=== PATIENT | female | born 1940 | race Caucasian/White ===

== ENCOUNTER 2023-03-16 00:03 | Emergency (ER) | payer MEDICARE, OTHER ==
[2023-03-16 00:43] LABS: INFLUENZA A NAA NEGATIVE (NEGATIVE); INFLUENZA B NAA NEGATIVE (NEGATIVE); RESPIRATORY SYNCYTIAL VIR NAA NEGATIVE (NEGATIVE)
[2023-03-16 00:44] VITALS: BP 153/82; PULSE 97
[2023-03-16 00:45] LABS: CORONAVIRUS COVID-19 NAA POSITIVE (NEGATIVE)
[2023-03-16 01:37] LABS: BASOPHILS PERCENT AUTO 0.4 % (0.0-1.0); EOSINOPHILS PERCENT AUTO 0.4 % (1.0-3.0); HEMATOCRIT 36.3 % (37.0-47.0); HEMOGLOBIN 11.2 g/dL (12.0-16.0); LYMPHOCYTES PERCENT AUTO 7.6 % (20.5-50.1); MEAN CORPUSCULAR HEMOGLOBIN 28.9 pg (27.0-34.0); MEAN CORPUSCULAR HGB CONC 30.9 g/dL (33.0-35.0); MEAN CORPUSCULAR VOLUME 93.6 fL (80-100); MONOCYTES PERCENT AUTO 19.8 % (2-8); NEUTROPHILS PERCENT AUTO 71.8 % (42.2-75.2); PLATELET COUNT,PLT 211 10^3/uL (150-450); RED BLOOD CELL COUNT 3.88 10^6/uL (4.2-5.4); WHITE BLOOD CELL COUNT,WBC 6.8 10^3/uL (5.0-10.0)
[2023-03-16] MEDS ORDERED: Dexamethasone 4 MG/ML SDV IVPUSH ONE (01:41)
[2023-03-16 02:02] LABS: ALBUMIN 2.9 g/dL (3.4-5.0); ANION GAP 5.5 mEq/L (7-13); BILIRUBIN TOTAL 0.4 mg/dL (0.2-1.0); BUN/CREATININE RATIO 14.1 (No establ ref range); CALCIUM 9.1 mg/dL (8.5-10.1); CREATININE 0.71 mg/dL (0.55-1.02); EST CRCL DRUG DOSING (CG) 50.53 mL/min; POTASSIUM,K 3.5 mmol/L (3.5-5.1); PROTEIN TOTAL,TP 6.5 g/dL (6.4-8.2)
[2023-03-16 02:08] LABS: A/G RATIO 0.81
== END 2023-03-16 03:18 | disposition home or self-care (01) ==
LOC: DL.ED 00:03
DX: U07.1 COVID-19 (principal); J44.9 Chronic obstructive pulmonary disease, unspecified; Z87.891 Personal history of nicotine dependence; I10 Essential (primary) hypertension; E03.9 Hypothyroidism, unspecified; Z79.899 Other long term (current) drug therapy
CPT/HCPCS: 0241U; 36415; 71045; 80053; 85025; 96374; 99284; 99285-25; J1100

== ENCOUNTER 2023-07-04 11:40 | Inpatient (IN) | payer MEDICARE, OTHER ==
[2023-07-04] MEDS: Albuterol/Ipratropium 3.0-0.5 MG/3 ML Neb Soln NEB ONE ×2 (11:48→13:04)
[2023-07-04] MEDS: methylPREDNISolone Sodium Succinate 125 MG/2 ML SDV IVPUSH ONE (11:50)
[2023-07-04 11:57] LABS: BASOPHILS PERCENT AUTO 0.2 % (0.0-1.0); EOSINOPHILS PERCENT AUTO 0.4 % (1.0-3.0); HEMATOCRIT 33.1 % (37.0-47.0); HEMOGLOBIN 10.1 g/dL (12.0-16.0); MEAN CORPUSCULAR HEMOGLOBIN 29.4 pg (27.0-34.0); MEAN CORPUSCULAR HGB CONC 30.5 g/dL (33.0-35.0); MEAN CORPUSCULAR VOLUME 96.2 fL (80-100); MONOCYTES PERCENT AUTO 6.4 % (2-8); PLATELET COUNT,PLT 248 10^3/uL (150-450); RED BLOOD CELL COUNT 3.44 10^6/uL (4.2-5.4); WHITE BLOOD CELL COUNT,WBC 22.5 10^3/uL (5.0-10.0)
[2023-07-04 12:20] LABS: A/G RATIO 1.2; ALBUMIN 4.2 g/dL (3.4-5.0); ANION GAP 8.1 mEq/L (7-13); BILIRUBIN TOTAL 0.6 mg/dL (0.2-1.0); BUN/CREATININE RATIO 14.3 (No establ ref range); CALCIUM 10.4 mg/dL (8.5-10.1); CREATININE 0.84 mg/dL (0.55-1.02); EST CRCL DRUG DOSING (CG) 42.71 mL/min; POTASSIUM,K 4.1 mmol/L (3.5-5.1); PROTEIN TOTAL,TP 7.7 g/dL (6.4-8.2)
[2023-07-04 12:21] LABS: LACTIC ACID 0.9 mmol/L (0.4-2.0)
[2023-07-04] MEDS: Levofloxacin/Dextrose 5%-Water 500 MG in Premix Bag 1 BAG IV ONE (12:28)
[2023-07-04] MEDS: Acetaminophen 500 MG Tab PO ONE (12:28)
[2023-07-04 12:34] LABS: INFLUENZA A NAA NEGATIVE (NEGATIVE); INFLUENZA B NAA NEGATIVE (NEGATIVE); RESPIRATORY SYNCYTIAL VIR NAA NEGATIVE (NEGATIVE)
[2023-07-04 12:37] LABS: CORONAVIRUS COVID-19 NAA POSITIVE (NEGATIVE)
[2023-07-04] MEDS: Sodium Chloride 0.9% 1,000 ML IV ONE (12:38)
[2023-07-04] MEDS: Benzonatate 100 MG Cap PO ONE (12:50)
[2023-07-04] MEDS: Sodium Chloride 0.9% 10 ML Syringe FLUSH PRN (12:52)
[2023-07-04] MEDS: Codeine/Promethazine 10-6.25 MG/5 ML Syrup 5 ML UD Cup PO ONE (12:54)
[2023-07-04] MEDS: Albuterol 0.083% 2.5 MG/3 ML Neb Soln NEB ONE (13:04)
[2023-07-04] MEDS ORDERED: Sennosides/Docusate Sodium 50-8.6 MG Tab PO PRN (14:47)
[2023-07-04] MEDS ORDERED: Naloxone 2 MG/2 ML Syringe IVPUSH PRN (14:47)
[2023-07-04] MEDS ORDERED: Magnesium Hydroxide 400 MG/5 ML Susp 30 ML Cup PO PRN (14:47)
[2023-07-04] MEDS ORDERED: HYDROmorphone 0.5 MG/0.5 ML Syringe IVPUSH PRN (14:47)
[2023-07-04] MEDS ORDERED: Polyethylene Glycol 3350 Powder 17 GM Packet PO PRN (14:47)
[2023-07-04] MEDS ORDERED: Acetaminophen 325 MG Tab PO PRN (14:47)
[2023-07-04] MEDS ORDERED: Ondansetron 4 MG/2 ML SDV IVPUSH PRN (14:47)
[2023-07-04] MEDS ORDERED: guaiFENesin/Dextromethorphan 100-10 MG/5 ML Soln 5 ML Cup PO PRN (14:51)
[2023-07-04] MEDS ORDERED: hydrALAZINE 20 MG/ML SDV IVPUSH PRN (15:17)
[2023-07-04] MEDS ORDERED: 50% Dextrose in Water 50 ML Syringe IVPUSH PRN (15:17)
[2023-07-04] MEDS ORDERED: Glucagon,Human Recombinant 1 MG Vial IM PRN (15:17)
[2023-07-04] MEDS: Sodium Chloride 0.9% 1,000 ML IV SCH (15:51)
[2023-07-04] MEDS: REMDESIVIR 200 MG in Sodium Chloride 0.9% 250 ML IV ONE (15:51)
[2023-07-04] MEDS: Magnesium Sulfate/D5W 1 GM/100 ML BAG IV ONE (17:18)
[2023-07-04] MEDS: Insulin Lispro 100 Units/ML 3 ML Vial SUBCUT SCH (17:22)
[2023-07-04] MEDS ORDERED: Acetaminophen 500 MG Tab PO PRN (17:31)
[2023-07-04] MEDS: Gabapentin 100 MG Cap PO SCH (18:30)
[2023-07-04] MEDS: Formoterol/Mometasone 200-5 MCG 8.8 GM Inhaler IH SCH (18:35)
[2023-07-04] MEDS ORDERED: Metoprolol Tartrate 25 MG Tab PO SCH (21:00)
[2023-07-04] MEDS ORDERED: guaiFENesin 600 MG Tab.ER PO SCH (21:00)
[2023-07-04] MEDS: Dexamethasone 4 MG Tab PO SCH (21:06)
[2023-07-04] MEDS: guaiFENesin 600 MG Tab.ER PO SCH (21:06)
[2023-07-04] MEDS: Metoprolol Succinate 50 MG Tab.ER PO SCH (21:06)
[2023-07-04] MEDS: Ziprasidone Mesylate 20 MG Vial IM PRN (21:07)
[2023-07-04] MEDS: diphenhydrAMINE 25 MG Tab PO SCH (21:07)
[2023-07-04] MEDS: FORMOTEROL FUMARATE INH SCH (21:07)
[2023-07-04] MEDS: BUDESONIDE INH SCH (21:07)
[2023-07-04] MEDS ORDERED: Albuterol 6.7 GM Inhaler**OWN MED INH PRN (21:11)
[2023-07-04] MEDS ORDERED: Albuterol 6.7 GM Inhaler INH PRN (21:56)
[2023-07-04] MEDS: Albuterol 6.7 GM Inhaler**OWN MED INH PRN (22:02)
[2023-07-04] MEDS: TIOTROPIUM BROMIDE INH SCH (22:03)
[2023-07-05] MEDS: Tiotropium Bromide 4 GM Inhalation Spray (2.5mcg/1 dose; 10 doses) INH SCH (01:48)
[2023-07-05] MEDS: Levothyroxine 75 MCG Tab PO SCH (05:14)
[2023-07-05] MEDS ORDERED: Patient's Own Medication 1 Each INH SCH (06:00)
[2023-07-05 06:27] LABS: BASOPHILS PERCENT AUTO 0.1 % (0.0-1.0); HEMOGLOBIN 9.5 g/dL (12.0-16.0); LYMPHOCYTES PERCENT AUTO 1.8 % (20.5-50.1); MEAN CORPUSCULAR HEMOGLOBIN 29.1 pg (27.0-34.0); MEAN CORPUSCULAR HGB CONC 30.6 g/dL (33.0-35.0); MEAN CORPUSCULAR VOLUME 95.1 fL (80-100); MONOCYTES PERCENT AUTO 2.4 % (2-8); NEUTROPHILS PERCENT AUTO 95.7 % (42.2-75.2); PLATELET COUNT,PLT 241 10^3/uL (150-450); RED BLOOD CELL COUNT 3.26 10^6/uL (4.2-5.4); WHITE BLOOD CELL COUNT,WBC 25.6 10^3/uL (5.0-10.0)
[2023-07-05 06:47] LABS: ALBUMIN 2.8 g/dL (3.4-5.0); ANION GAP 8.1 mEq/L (7-13); BILIRUBIN DIRECT 0.1 mg/dL (0.0-0.2); BILIRUBIN TOTAL 0.4 mg/dL (0.2-1.0); BUN/CREATININE RATIO 20.8 (No establ ref range); C-REACTIVE PROTEIN 9.72 ng/dL (<=0.50); CALCIUM 8.9 mg/dL (8.5-10.1); CREATININE 0.77 mg/dL (0.55-1.02); EST CRCL DRUG DOSING (CG) 46.6 mL/min; MAGNESIUM 1.9 mg/dL (1.8-2.4); POTASSIUM,K 4.1 mmol/L (3.5-5.1); PROTEIN TOTAL,TP 5.9 g/dL (6.4-8.2)
[2023-07-05 06:50] LABS: A/G RATIO 0.9
[2023-07-05] MEDS ORDERED: Tiotropium Bromide 4 GM Inhalation Spray (2.5mcg/1 dose; 10 doses) INH SCH ×2 (09:00)
[2023-07-05] MEDS ORDERED: SELENIUM 50 MCG PO SCH (09:00)
[2023-07-05] MEDS: Famotidine 20 MG Tab PO SCH (09:02)
[2023-07-05] MEDS: Docusate Sodium 100 MG Cap PO SCH (09:02)
[2023-07-05] MEDS: Cholecalciferol (Vitamin D3) 25 MCG Tab PO SCH (09:02)
[2023-07-05] MEDS: Multivitamin Tab PO SCH (09:02)
[2023-07-05] MEDS: Aspirin 81 MG Tab.EC PO SCH (09:03)
[2023-07-05] MEDS: REMDESIVIR 100 MG in Sodium Chloride 0.9% 100 ML IV SCH (09:04)
[2023-07-05] MEDS: Azithromycin 500 MG in Sodium Chloride 0.9% 250 ML IV SCH (09:04)
[2023-07-05] MEDS: cefTRIAXone 1 GM Vial IVPUSH SCH (09:04)
[2023-07-05] MEDS: Non-Formulary Medication 1 Each (Zinc Gluconate [Zinc] 50 MG Tablet) PO SCH (09:42)
[2023-07-05] MEDS: Diltiazem 60 MG Cap.SR PO SCH (13:50)
[2023-07-05] MEDS: Diltiazem 180 MG Cap.CD PO SCH ×2 (13:51→21:08)
[2023-07-06 06:16] LABS: BASOPHILS PERCENT AUTO 0.1 % (0.0-1.0); HEMOGLOBIN 10.3 g/dL (12.0-16.0); LYMPHOCYTES PERCENT AUTO 1.4 % (20.5-50.1); MEAN CORPUSCULAR HEMOGLOBIN 28.9 pg (27.0-34.0); MEAN CORPUSCULAR HGB CONC 30.3 g/dL (33.0-35.0); MEAN CORPUSCULAR VOLUME 95.5 fL (80-100); MONOCYTES PERCENT AUTO 2.2 % (2-8); NEUTROPHILS PERCENT AUTO 96.3 % (42.2-75.2); PLATELET COUNT,PLT 298 10^3/uL (150-450); RED BLOOD CELL COUNT 3.56 10^6/uL (4.2-5.4); WHITE BLOOD CELL COUNT,WBC 28.8 10^3/uL (5.0-10.0)
[2023-07-06 06:38] LABS: ANION GAP 6.8 mEq/L (7-13); BILIRUBIN DIRECT 0.1 mg/dL (0.0-0.2); BILIRUBIN TOTAL 0.3 mg/dL (0.2-1.0); BUN/CREATININE RATIO 27.8 (No establ ref range); C-REACTIVE PROTEIN 6.72 ng/dL (<=0.50); CALCIUM 9.5 mg/dL (8.5-10.1); CREATININE 0.79 mg/dL (0.55-1.02); EST CRCL DRUG DOSING (CG) 45.42 mL/min; MAGNESIUM 2.1 mg/dL (1.8-2.4); POTASSIUM,K 4.8 mmol/L (3.5-5.1); PROTEIN TOTAL,TP 6.1 g/dL (6.4-8.2)
[2023-07-06 06:51] LABS: A/G RATIO 0.97
[2023-07-06] MEDS: Diltiazem 180 MG Cap.CD PO SCH ×2 (11:00→12:20)
[2023-07-06] MEDS: Albuterol/Ipratropium 3.0-0.5 MG/3 ML Neb Soln NEB PRN (13:35)
[2023-07-06] MEDS: Morphine 2 MG/ML SYRINGE IVPUSH PRN (16:09)
[2023-07-06] MEDS: Albuterol/Ipratropium 3.0-0.5 MG/3 ML Neb Soln NEB SCH (16:49)
[2023-07-07 06:32] LABS: BASOPHILS PERCENT AUTO 0.1 % (0.0-1.0); HEMATOCRIT 34.6 % (37.0-47.0); HEMOGLOBIN 10.4 g/dL (12.0-16.0); LYMPHOCYTES PERCENT AUTO 1.5 % (20.5-50.1); MEAN CORPUSCULAR HEMOGLOBIN 29.1 pg (27.0-34.0); MEAN CORPUSCULAR HGB CONC 30.1 g/dL (33.0-35.0); MEAN CORPUSCULAR VOLUME 96.6 fL (80-100); MONOCYTES PERCENT AUTO 2.4 % (2-8); PLATELET COUNT,PLT 307 10^3/uL (150-450); RED BLOOD CELL COUNT 3.58 10^6/uL (4.2-5.4); WHITE BLOOD CELL COUNT,WBC 20.2 10^3/uL (5.0-10.0)
[2023-07-07 06:56] LABS: ALBUMIN 2.8 g/dL (3.4-5.0); ANION GAP 5.1 mEq/L (7-13); BILIRUBIN DIRECT 0.1 mg/dL (0.0-0.2); BILIRUBIN TOTAL 0.3 mg/dL (0.2-1.0); BUN/CREATININE RATIO 32.9 (No establ ref range); C-REACTIVE PROTEIN 3.77 ng/dL (<=0.50); CALCIUM 9.1 mg/dL (8.5-10.1); CREATININE 0.76 mg/dL (0.55-1.02); EST CRCL DRUG DOSING (CG) 47.21 mL/min; MAGNESIUM 2.1 mg/dL (1.8-2.4); POTASSIUM,K 5.1 mmol/L (3.5-5.1); PROTEIN TOTAL,TP 5.8 g/dL (6.4-8.2)
[2023-07-07 07:01] LABS: A/G RATIO 0.93
[2023-07-07] MEDS: Dexamethasone 4 MG Tab PO SCH (21:30)
[2023-07-07] MEDS: Metoprolol Tartrate 5 MG/5 ML SDV IVPUSH PRN (22:00)
[2023-07-07] MEDS: Ziprasidone Mesylate 20 MG Vial IM PRN (23:15)
[2023-07-08] MEDS: Oxymetazoline 0.05% Nasal Spray 30 ML Bottle NAS PRN (00:35)
[2023-07-08] MEDS: Pseudoephedrine 30 MG Tab PO ONE (00:45)
[2023-07-08 05:55] LABS: HEMATOCRIT 36.2 % (37.0-47.0); HEMOGLOBIN 10.8 g/dL (12.0-16.0); MEAN CORPUSCULAR HEMOGLOBIN 29.1 pg (27.0-34.0); MEAN CORPUSCULAR HGB CONC 29.8 g/dL (33.0-35.0); MEAN CORPUSCULAR VOLUME 97.6 fL (80-100); PLATELET COUNT,PLT 306 10^3/uL (150-450); RED BLOOD CELL COUNT 3.71 10^6/uL (4.2-5.4); WHITE BLOOD CELL COUNT,WBC 13.6 10^3/uL (5.0-10.0)
[2023-07-08 06:00] LABS: BASOPHILS PERCENT AUTO 0.1 % (0.0-1.0); LYMPHOCYTES PERCENT AUTO 1.8 % (20.5-50.1); MONOCYTES PERCENT AUTO 5.1 % (2-8)
[2023-07-08 06:08] LABS: ALBUMIN 2.8 g/dL (3.4-5.0); ANION GAP 3.5 mEq/L (7-13); BILIRUBIN DIRECT 0.1 mg/dL (0.0-0.2); BILIRUBIN TOTAL 0.3 mg/dL (0.2-1.0); BUN/CREATININE RATIO 32.9 (No establ ref range); C-REACTIVE PROTEIN 2.3 ng/dL (<=0.50); CALCIUM 9.2 mg/dL (8.5-10.1); CREATININE 0.7 mg/dL (0.55-1.02); EST CRCL DRUG DOSING (CG) 51.26 mL/min; MAGNESIUM 2.1 mg/dL (1.8-2.4); POTASSIUM,K 4.5 mmol/L (3.5-5.1); PROTEIN TOTAL,TP 5.6 g/dL (6.4-8.2)
[2023-07-08 06:31] LABS: BAND PERCENT MAN 1 %; LYMPHOCYTES PERCENT MAN 4 % (20-50); MONOCYTES PERCENT MAN 1 % (2-8); SEG NEUTROPHILS PERCENT MAN 93 % (42-75)
[2023-07-08 10:05] VITALS: BP 141/79; PULSE 100
== END 2023-07-08 12:20 | disposition home or self-care (01) | DRG 871 ==
LOC: DL.ED 11:40 → DL.MS 14:09 → DL.ED 14:13
PROVIDERS: ADMIT Internal Medicine; ATTEND Internal Medicine
PROC: 3E03329 Introduction of Other Anti-infective into Peripheral Vein, Percutaneous Approach (ICD-10-PCS; principal; 2023-07-04)
PROC: XW033E5 Introduction of Remdesivir Anti-infective into Peripheral Vein, Percutaneous Approach, New Technology Group 5 (ICD-10-PCS; 2023-07-04)
DX: A41.89 Other specified sepsis (principal); J12.82 Pneumonia due to coronavirus disease 2019; J96.21 Acute and chronic respiratory failure with hypoxia; A41.9 Sepsis, unspecified organism; J18.9 Pneumonia, unspecified organism; J96.22 Acute and chronic respiratory failure with hypercapnia; U07.1 COVID-19; E87.1 Hypo-osmolality and hyponatremia; J44.1 Chronic obstructive pulmonary disease with (acute) exacerbation; J44.0 Chronic obstructive pulmonary disease with (acute) lower respiratory infection; Z66 Do not resuscitate; R65.20 Severe sepsis without septic shock; E87.8 Other disorders of electrolyte and fluid balance, not elsewhere classified; M81.0 Age-related osteoporosis without current pathological fracture; D72.829 Elevated white blood cell count, unspecified; D50.9 Iron deficiency anemia, unspecified; I10 Essential (primary) hypertension; F41.9 Anxiety disorder, unspecified; E03.9 Hypothyroidism, unspecified; E78.5 Hyperlipidemia, unspecified; G47.00 Insomnia, unspecified; H54.7 Unspecified visual loss; E83.52 Hypercalcemia; R73.03 Prediabetes; Z98.51 Tubal ligation status; I25.2 Old myocardial infarction; Z79.890 Hormone replacement therapy; Z88.5 Allergy status to narcotic agent; Z79.82 Long term (current) use of aspirin; Z79.899 Other long term (current) drug therapy; Z87.891 Personal history of nicotine dependence; Z98.49 Cataract extraction status, unspecified eye; Z79.51 Long term (current) use of inhaled steroids; Z88.8 Allergy status to other drugs, medicaments and biological substances; Z99.81 Dependence on supplemental oxygen
CPT/HCPCS: 0241U; 36415; 70450; 71045; 80053; 82248; 82947; 83605; 83735; 83880; 84145; 84484; 85025; 86140; 87040; 87070; 87205; 93010; 94640; 94760; 96365; 96375; 99223; 99232; 99233; 99238; 99285; 99285-25; A9270-GY; J0248; J0456; J0696; J1815-GY; J1956; J2270; J2930; J3475; J3486; J3490; J7030; J7050; J7613-GY; J7620-GY; J8540

== ENCOUNTER 2024-11-08 06:42 | Inpatient (IN) | payer MEDICARE, OTHER ==
[2024-11-08] MEDS: Albuterol 0.083% 2.5 MG/3 ML Neb Soln ONE (07:06)
[2024-11-08] MEDS: methylPREDNISolone Sodium Succinate 125 MG/2 ML SDV IVPUSH ONE (07:09)
[2024-11-08 07:25] LABS: O2 DELIVERY DEVICE SIMPLE MASK
[2024-11-08 07:27] LABS: BASOPHILS PERCENT AUTO 0.2 % (0.0-1.0); EOSINOPHILS PERCENT AUTO 1.5 % (1.0-3.0); LYMPHOCYTES PERCENT AUTO 11.3 % (20.5-50.1); MONOCYTES PERCENT AUTO 12.0 % (2-8); NEUTROPHILS PERCENT AUTO 75.0 % (42.2-75.2); PLATELET COUNT,PLT 204 10^3/uL (150-450); RED BLOOD CELL COUNT 3.73 10^6/uL (4.2-5.4); WHITE BLOOD CELL COUNT,WBC 17.4 10^3/uL (5.0-10.0)
[2024-11-08 07:43] LABS: BASE EXCESS VENOUS 10.4 mmol/l ((-2)-(+3)); BICARBONATE,VENOUS 41 mmol/l (19-25); O2 SATURATION VENOUS 91.1 % (60-80); PO2 VENOUS 78 mmHg (35-42)
[2024-11-08 07:44] LABS: PCO2 VENOUS 98 mmHg (41-51); PH,VENOUS 7.24 (7.31-7.41)
[2024-11-08 07:52] LABS: B-TYPE NATRIURETIC PEPTIDE,BNP 275 pg/ml (0-100)
[2024-11-08 07:53] LABS: A/G RATIO 1.0; ALANINE AMINOTRANSFERASE,ALT 25 U/L (14-59); ASPARTATE AMNIOTRANSFERASE,AST 19 U/L (15-37); BILIRUBIN TOTAL 0.7 mg/dL (0.2-1.0); BLOOD UREA NITROGEN,BUN 17 mg/dL (7-18); CARBON DIOXIDE,CO2 41 mmol/L (21-32); CHLORIDE,CL 102 mmol/L (98-107); CREATININE 0.71 mg/dL (0.55-1.02); ESTIMATED GFR 84 mL/min (>=60); GLUCOSE RANDOM 120 mg/dL (70-99); POTASSIUM,K 4.1 mmol/L (3.5-5.1); PROTEIN TOTAL,TP 6.7 g/dL (6.4-8.2); SODIUM,NA 144 mmol/L (136-145)
[2024-11-08] MEDS: Iopamidol 612 MG/ML 100 ML Bottle IVPUSH ONE (08:19)
[2024-11-08] MEDS: Levofloxacin/Dextrose 5%-Water 750 MG in Premix Bag 1 BAG IV ONE (08:49)
[2024-11-08] MEDS: methylPREDNISolone Sodium Succinate 125 MG/2 ML SDV ONE (08:51)
[2024-11-08 09:02] LABS: O2 DELIVERY DEVICE BIPAP
[2024-11-08 09:09] LABS: BASE EXCESS VENOUS 12 mmol/l ((-2)-(+3)); BICARBONATE,VENOUS 40 mmol/l (19-25); O2 SATURATION VENOUS 33.3 % (60-80); PH,VENOUS 7.32 (7.31-7.41); PO2 VENOUS 35 mmHg (35-42)
[2024-11-08 09:11] LABS: PCO2 VENOUS 82 mmHg (41-51)
[2024-11-08 11:39] LABS: O2 DELIVERY DEVICE NASAL CANNULA
[2024-11-08 11:41] LABS: BASE EXCESS ARTERIAL 10 mmol/L ((-2)-(+3)); BICARBONATE,ARTERIAL 37.5 mmol/L (22-26); O2 SATURATION ARTERIAL 98 % (95-100); PH,ARTERIAL 7.32 (7.35-7.45); PO2 ARTERIAL 112 mmHg (70-100)
[2024-11-08 11:45] LABS: PCO2 ARTERIAL 75 mmHg (35-45)
[2024-11-08] MEDS: Magnesium Sulf/Wat 4 GM/50 mL 4 GM in Premix Bag 1 BAG IV ONE (12:54)
[2024-11-08] MEDS: Heparin Sodium 5,000 Units/ML Vial SUBCUT SCH (12:55)
[2024-11-08] MEDS: LORazepam 2 MG/ML SDV IVPUSH SCH (12:56)
[2024-11-08] MEDS: methylPREDNISolone Sodium Succinate 40 MG/1 ML SDV IVPUSH SCH (18:14)
[2024-11-09 06:03] LABS: BASOPHILS PERCENT AUTO 0.1 % (0.0-1.0); EOSINOPHILS PERCENT AUTO 0.0 % (1.0-3.0); LYMPHOCYTES PERCENT AUTO 3.7 % (20.5-50.1); MONOCYTES PERCENT AUTO 4.3 % (2-8); NEUTROPHILS PERCENT AUTO 91.9 % (42.2-75.2); PLATELET COUNT,PLT 208 10^3/uL (150-450); RED BLOOD CELL COUNT 3.40 10^6/uL (4.2-5.4); WHITE BLOOD CELL COUNT,WBC 14.7 10^3/uL (5.0-10.0)
[2024-11-09 06:22] LABS: BLOOD UREA NITROGEN,BUN 18.0 mg/dL (7-18); CARBON DIOXIDE,CO2 39.0 mmol/L (21-32); CHLORIDE,CL 104.0 mmol/L (98-107); CREATININE 0.64 mg/dL (0.55-1.02); EST CRCL DRUG DOSING (CG) 52.68 mL/min; GLUCOSE RANDOM 124.0 mg/dL (70-99); PHOSPHORUS 2.9 mg/dL (2.6-4.7); POTASSIUM,K 4.5 mmol/L (3.5-5.1); SODIUM,NA 142.0 mmol/L (136-145)
[2024-11-09 06:34] LABS: ESTIMATED GFR 88.0 mL/min (>=60)
[2024-11-09 06:44] LABS: O2 DELIVERY DEVICE NASAL CANNULA; PH,ARTERIAL 7.38 (7.35-7.45)
[2024-11-09 06:45] LABS: BASE EXCESS ARTERIAL 11 mmol/L ((-2)-(+3)); BICARBONATE,ARTERIAL 38.1 mmol/L (22-26); O2 SATURATION ARTERIAL 91 % (95-100); PO2 ARTERIAL 65 mmHg (70-100)
[2024-11-09 06:47] LABS: PCO2 ARTERIAL 67 mmHg (35-45)
[2024-11-09] MEDS: Diltiazem 240 MG Cap.ER PO SCH (08:49)
[2024-11-09] MEDS: LORazepam 2 MG/ML SDV IVPUSH PRN (09:59)
[2024-11-09] MEDS: Diltiazem 120 MG Cap.CD PO SCH (10:08)
[2024-11-09 10:18] LABS: IRON,FE 44.0 ug/dL (50-170); PERCENT FE SATURATION 23.7 % (20.0-50.0)
[2024-11-09] MEDS: Saccharomyces Boulardii (Probiotic) 250 MG Cap PO SCH (10:36)
[2024-11-09 11:20] LABS: T4 FREE 1.05 ng/dL (0.76-1.46); TSH ULTRASENSITIVE 0.89 uIU/mL (0.36-3.74)
[2024-11-09 11:21] LABS: FOLIC ACID > 20.0 ng/mL (8.6-58.9)
[2024-11-09] MEDS: Dexamethasone/Tobramycin 0.1-0.3% Ophth Oint 3.5 GM Tube EYEBOTH SCH (21:55)
[2024-11-10 06:15] LABS: BASOPHILS PERCENT AUTO 0.1 % (0.0-1.0); EOSINOPHILS PERCENT AUTO 0.0 % (1.0-3.0); LYMPHOCYTES PERCENT AUTO 3.3 % (20.5-50.1); MONOCYTES PERCENT AUTO 4.9 % (2-8); NEUTROPHILS PERCENT AUTO 91.7 % (42.2-75.2); PLATELET COUNT,PLT 246 10^3/uL (150-450); RED BLOOD CELL COUNT 3.39 10^6/uL (4.2-5.4); WHITE BLOOD CELL COUNT,WBC 15.4 10^3/uL (5.0-10.0)
[2024-11-10 06:28] LABS: BLOOD UREA NITROGEN,BUN 22.0 mg/dL (7-18); CARBON DIOXIDE,CO2 41.0 mmol/L (21-32); CHLORIDE,CL 102.0 mmol/L (98-107); CREATININE 0.69 mg/dL (0.55-1.02); EST CRCL DRUG DOSING (CG) 48.86 mL/min; GLUCOSE RANDOM 131.0 mg/dL (70-99); POTASSIUM,K 4.5 mmol/L (3.5-5.1); SODIUM,NA 139.0 mmol/L (136-145)
[2024-11-10 07:04] LABS: ESTIMATED GFR 86.0 mL/min (>=60)
[2024-11-10] MEDS ORDERED: Saccharomyces Boulardii (Probiotic) 250 MG Cap PO SCH ×2 (09:00)
[2024-11-11] MEDS: Theophylline 200 MG Cap.ER PO SCH (13:47)
[2024-11-11] MEDS ORDERED: Sodium Chloride 0.9% 10 ML Syringe FLUSH PRN (22:08)
[2024-11-12 06:16] LABS: PLATELET COUNT,PLT 263 10^3/uL (150-450); RED BLOOD CELL COUNT 3.72 10^6/uL (4.2-5.4); WHITE BLOOD CELL COUNT,WBC 12.4 10^3/uL (5.0-10.0)
[2024-11-12 06:19] LABS: BASOPHILS PERCENT AUTO 0.2 % (0.0-1.0); EOSINOPHILS PERCENT AUTO 0.0 % (1.0-3.0); LYMPHOCYTES PERCENT AUTO 4.0 % (20.5-50.1); MONOCYTES PERCENT AUTO 7.4 % (2-8); NEUTROPHILS PERCENT AUTO 88.4 % (42.2-75.2)
[2024-11-12 06:29] LABS: BLOOD UREA NITROGEN,BUN 21.0 mg/dL (7-18); CARBON DIOXIDE,CO2 39.0 mmol/L (21-32); CHLORIDE,CL 104.0 mmol/L (98-107); CREATININE 0.71 mg/dL (0.55-1.02); EST CRCL DRUG DOSING (CG) 47.48 mL/min; GLUCOSE RANDOM 148.0 mg/dL (70-99); POTASSIUM,K 4.2 mmol/L (3.5-5.1); SODIUM,NA 143.0 mmol/L (136-145)
[2024-11-12 06:30] LABS: ESTIMATED GFR 84.0 mL/min (>=60)
[2024-11-12 06:40] LABS: BAND PERCENT MAN 2 %; LYMPHOCYTES PERCENT MAN 4 % (20-50); MONOCYTES PERCENT MAN 8 % (2-8); SEG NEUTROPHILS PERCENT MAN 86 % (42-75)
[2024-11-12] MEDS ORDERED: Ondansetron 4 MG/2 ML SDV IVPUSH PRN (16:19)
[2024-11-12] MEDS: Tiotropium Bromide 4 GM Inhalation Spray (2.5mcg/1 dose; 10 doses) INH SCH (16:39)
[2024-11-12] MEDS: Lactulose Soln 10 GM/15 ML 30 ML UD Cup PO ONE (17:17)
[2024-11-12] MEDS: ENSIFENTRINE NEB SCH (17:21)
[2024-11-12] MEDS: Formoterol/Mometasone 200-5 MCG 8.8 GM Inhaler INH SCH (17:22)
[2024-11-13] MEDS: Benzocaine/Cetylpyridinium/Menthol Lozenge MUCMEM ONE (08:42)
[2024-11-13 16:25] LABS: PLATELET COUNT,PLT 303 10^3/uL (150-450); RED BLOOD CELL COUNT 3.67 10^6/uL (4.2-5.4); WHITE BLOOD CELL COUNT,WBC 14.1 10^3/uL (5.0-10.0)
[2024-11-13 16:30] LABS: BASOPHILS PERCENT AUTO 0.1 % (0.0-1.0); EOSINOPHILS PERCENT AUTO 0.1 % (1.0-3.0); LYMPHOCYTES PERCENT AUTO 3.2 % (20.5-50.1); MONOCYTES PERCENT AUTO 4.2 % (2-8); NEUTROPHILS PERCENT AUTO 92.4 % (42.2-75.2)
[2024-11-13 16:46] LABS: ALANINE AMINOTRANSFERASE,ALT 47.0 U/L (14-59); ASPARTATE AMNIOTRANSFERASE,AST 30.0 U/L (15-37); BILIRUBIN TOTAL 0.7 mg/dL (0.2-1.0); BLOOD UREA NITROGEN,BUN 29.0 mg/dL (7-18); CARBON DIOXIDE,CO2 41.0 mmol/L (21-32); CHLORIDE,CL 103.0 mmol/L (98-107); CREATININE 0.92 mg/dL (0.55-1.02); EST CRCL DRUG DOSING (CG) 36.64 mL/min; GLUCOSE RANDOM 168.0 mg/dL (70-99); POTASSIUM,K 4.4 mmol/L (3.5-5.1); PROTEIN TOTAL,TP 6.0 g/dL (6.4-8.2); SODIUM,NA 143.0 mmol/L (136-145)
[2024-11-13 16:47] LABS: A/G RATIO 1.07; ESTIMATED GFR 62.0 mL/min (>=60)
[2024-11-13 16:52] LABS: SEG NEUTROPHILS PERCENT MAN 92 % (42-75)
[2024-11-13 16:53] LABS: BAND PERCENT MAN 3 %; LYMPHOCYTES PERCENT MAN 2 % (20-50); MONOCYTES PERCENT MAN 3 % (2-8)
[2024-11-13 17:07] VITALS: BP 112/67; PULSE 81
[2024-11-13] MEDS ORDERED: ENSIFENTRINE NEB SCH (20:00)
[2024-11-14] MEDS ORDERED: Tiotropium Bromide 4 GM Inhalation Spray (2.5mcg/1 dose; 10 doses) INH SCH (07:00)
[2024-11-14] MEDS ORDERED: Theophylline 200 MG Tab.ER PO SCH (09:00)
== END 2024-11-13 17:30 | DRG 189 ==
LOC: DL.ED 06:42 → DL.MS 10:31
PROVIDERS: ADMIT Internal Medicine; ATTEND Student in an Organized Health Care Education/Training Program
PROC: 3E03329 Introduction of Other Anti-infective into Peripheral Vein, Percutaneous Approach (ICD-10-PCS; principal; 2024-11-08)
PROC: 4A033R1 Measurement of Arterial Saturation, Peripheral, Percutaneous Approach (ICD-10-PCS; 2024-11-08)
PROC: 5A09357 Assistance with Respiratory Ventilation, Less than 24 Consecutive Hours, Continuous Positive Airway Pressure (ICD-10-PCS; 2024-11-08)
DX: J96.21 Acute and chronic respiratory failure with hypoxia (principal); J44.1 Chronic obstructive pulmonary disease with (acute) exacerbation; J96.22 Acute and chronic respiratory failure with hypercapnia; I25.10 Atherosclerotic heart disease of native coronary artery without angina pectoris; D72.825 Bandemia; Z66 Do not resuscitate; Z79.890 Hormone replacement therapy; I10 Essential (primary) hypertension; E03.9 Hypothyroidism, unspecified; F41.9 Anxiety disorder, unspecified; J43.9 Emphysema, unspecified; D50.9 Iron deficiency anemia, unspecified; Z98.49 Cataract extraction status, unspecified eye; I25.2 Old myocardial infarction; Z79.52 Long term (current) use of systemic steroids; Z98.51 Tubal ligation status; Z79.899 Other long term (current) drug therapy; Z79.82 Long term (current) use of aspirin; Z88.8 Allergy status to other drugs, medicaments and biological substances; Z88.5 Allergy status to narcotic agent; Z99.81 Dependence on supplemental oxygen; Z87.891 Personal history of nicotine dependence
CPT/HCPCS: 36415; 71045; 71260; 80053; 82803 ×2; 83735; 83880; 84484; 85025; 86140; 87040 ×2; 93005; 93010; 94660 ×2; 96365; 96366; 96375; 99285 ×2; A9270; J1956; J2919; J7040; Q9967; 36600; 80048; 82272; 82607; 82746; 83540; 83550; 84100; 84439; 84443; 94640; 94664; 99233; 99238; J0456; J1644; J1920; J2060; J2270; J3475; J7050; J7512; U0002

== ENCOUNTER 2024-12-24 17:17 | Emergency (ER) | payer MEDICARE, OTHER ==
[2024-12-24] MEDS ORDERED: Sodium Chloride 0.9% 10 ML Syringe FLUSH PRN (17:23)
[2024-12-24] MEDS: methylPREDNISolone Sodium Succinate 40 MG/1 ML SDV IVPUSH ONE (17:35)
[2024-12-24 17:41] LABS: BASOPHILS PERCENT AUTO 0.4 % (0.0-1.0); EOSINOPHILS PERCENT AUTO 0.6 % (1.0-3.0); LYMPHOCYTES PERCENT AUTO 14.9 % (20.5-50.1); MONOCYTES PERCENT AUTO 11.6 % (2-8); NEUTROPHILS PERCENT AUTO 72.5 % (42.2-75.2); PLATELET COUNT,PLT 320 10^3/uL (150-450); RED BLOOD CELL COUNT 4.04 10^6/uL (4.2-5.4); WHITE BLOOD CELL COUNT,WBC 13.3 10^3/uL (5.0-10.0)
[2024-12-24 17:57] LABS: A/G RATIO 1.2; ALANINE AMINOTRANSFERASE,ALT 31 U/L (14-59); ASPARTATE AMNIOTRANSFERASE,AST 15 U/L (15-37); BILIRUBIN TOTAL 0.4 mg/dL (0.2-1.0); BLOOD UREA NITROGEN,BUN 27 mg/dL (7-18); CARBON DIOXIDE,CO2 40 mmol/L (21-32); CHLORIDE,CL 102 mmol/L (98-107); CREATININE 0.64 mg/dL (0.55-1.02); GLUCOSE RANDOM 122 mg/dL (70-99); POTASSIUM,K 4.1 mmol/L (3.5-5.1); PROTEIN TOTAL,TP 7.1 g/dL (6.4-8.2); SODIUM,NA 146 mmol/L (136-145)
[2024-12-24 18:00] LABS: B-TYPE NATRIURETIC PEPTIDE,BNP 112 pg/ml (0-100)
[2024-12-24 18:01] LABS: ESTIMATED GFR 88 mL/min (>=60); LACTIC ACID 1.4 mmol/L (0.4-2.0)
[2024-12-24] MEDS: Ondansetron 4 MG/2 ML SDV IVPUSH ONE (18:20)
[2024-12-24] MEDS: Magnesium Sulfate 2 GM/50 mL 2 GM in Premix Bag 1 BAG IV ONE (18:20)
[2024-12-24] MEDS: Levofloxacin/Dextrose 5%-Water 500 MG in Premix Bag 1 BAG IV ONE (18:21)
[2024-12-24] MEDS: Ondansetron 4 MG/2 ML SDV ONE (18:21)
[2024-12-24] MEDS: Albuterol 0.083% 2.5 MG/3 ML Neb Soln NEB ONE (18:28)
[2024-12-24 20:05] VITALS: BP 128/79; PULSE 113
== END 2024-12-24 21:10 | disposition critical access hospital (66) ==
LOC: DL.ED 17:17
DX: J44.1 Chronic obstructive pulmonary disease with (acute) exacerbation (principal); I10 Essential (primary) hypertension; E03.9 Hypothyroidism, unspecified; Z88.5 Allergy status to narcotic agent; Z88.8 Allergy status to other drugs, medicaments and biological substances; Z79.890 Hormone replacement therapy; Z79.899 Other long term (current) drug therapy; Z79.82 Long term (current) use of aspirin
CPT/HCPCS: 36415; 71045; 80053; 83605; 83880; 85025; 87040; 93005; 94660; 96374; 96375; 99285; A9270; J1956; J2405; J2919; J3475

== ENCOUNTER 2025-02-10 17:33 | Inpatient (IN) | payer MEDICARE, OTHER ==
[2025-02-10] MEDS ORDERED: Magnesium Hydroxide 400 MG/5 ML Susp 30 ML Cup PO PRN (18:10)
[2025-02-10] MEDS ORDERED: AMINOPHYLLINE IV ONE (18:27)
[2025-02-10] MEDS ORDERED: SODIUM CHLORIDE 0.9% IV ONE (18:27)
[2025-02-10] MEDS: methylPREDNISolone Sodium Succinate 40 MG/1 ML SDV IVPUSH SCH (18:55)
[2025-02-10] MEDS: AMINOPHYLLINE IV ONE (20:16)
[2025-02-10] MEDS: SODIUM CHLORIDE 0.9% IV ONE (20:16)
[2025-02-10 21:34] VITALS: BP 132/58; PULSE 98
[2025-02-11] MEDS: Furosemide 20 MG/2 ML VIAL IVPUSH ONE (17:59)
[2025-02-11] MEDS: Magnesium Sulfate 2 GM/50 mL 2 GM in Premix Bag 1 BAG IV ONE (18:04)
[2025-02-11] MEDS: Ondansetron 4 MG/2 ML SDV IVPUSH ONE (18:44)
[2025-02-12] MEDS ORDERED: Theophylline 200 MG Tab.ER PO SCH (09:00)
[2025-02-12] MEDS: Theophylline 300 MG Tab.ER PO SCH (09:23)
[2025-02-12] MEDS: Morphine 100 MG in Sodium Chloride 0.9% 90 ML IV SCH (12:46)
== END 2025-02-12 18:15 | disposition expired | DRG 951 ==
LOC: UNDOADMIN 18:25 → DL.MS 18:25
PROVIDERS: ADMIT Internal Medicine; ATTEND Internal Medicine
DX: Z51.5 Encounter for palliative care (principal); J96.21 Acute and chronic respiratory failure with hypoxia; Z66 Do not resuscitate; J44.9 Chronic obstructive pulmonary disease, unspecified; E03.9 Hypothyroidism, unspecified; G89.29 Other chronic pain; I10 Essential (primary) hypertension; E78.5 Hyperlipidemia, unspecified; F32.A Depression, unspecified; F41.9 Anxiety disorder, unspecified; Z88.8 Allergy status to other drugs, medicaments and biological substances; Z79.899 Other long term (current) drug therapy; Z79.82 Long term (current) use of aspirin; Z79.52 Long term (current) use of systemic steroids; Z98.49 Cataract extraction status, unspecified eye
CPT/HCPCS: 99223; 99233; 99239; A9270-GY; J0280; J1938; J2270; J2405; J2919; J3360; J3475; J7040